=== PATIENT | female | born 1995 | race Caucasian/White ===

== ENCOUNTER 2017-06-12 21:37 | Emergency (ER) | payer OTHER ==
[2017-06-12 21:43] VITALS: BP 100/41; PULSE 62; TEMP 98.6; BMI 25.0
--- NOTE | 2017-06-12 22:48 | PDOC ---
History of Present Illness - General Chief Complaint: Sore Throat Stated Complaint: SORE THROAT Time Seen by Provider: 06/12/17 21:44 - History of Present Illness Initial Comments: This 22-year-old woman without significant past medical history presents with 5 day history of sore throat. She was seen in urgent care 4 days ago and started on antibiotics. Patient does not recall that she was tested for strep; she did remember receiving an intramuscular medication although she was not sure with this medication was. She was given prescription for Augmentin 875/125 twice a day for 10 days. She was told when she was discharged from urgent care to go to an emergency room if she had no relief in her symptoms. She presents now because she continues to have pain when she swallows. Patient does not describe worsening of the pain, drooling, trismus, high fever or difficulty breathing. She has no known contacts with other people left head strep throat and does not know if she has had mono nucleosis this in the past Past History - Past Medical History Allergies/Adverse Reactions: Allergies Allergy/AdvReac Type Severity Reaction Status Date / Time No Known Allergies Allergy Verified 06/12/17 21:38 Home Medications: Ambulatory Orders NK [No Known Home Medication] 06/12/17 COPD: No - Immunization History Immunization Up to Date: Yes - Suicide/Smoking/Psychosocial Hx Smoking History: Never smoked Hx Alcohol Use: Yes (OCCASIONAL) Drug/Substance Use Hx: No Substance Use Type: None *Physical Exam - Vital Signs Last Vital Signs Temp Pulse Resp BP Pulse Ox 98.6 F 62 15 100/41 99 06/12/17 21:38 06/12/17 21:38 06/12/17 21:38 06/12/17 21:38 06/12/17 21:38 - Physical Exam Comments: GENERAL: Young adult female, alert and oriented 3, speaking in full sentences, and no acute distress HEAD: Normal with no signs of trauma. EYES: PERRLA, EOMI, sclera anicteric, conjunctiva clear. ENT: Ears normal, nares patent, tonsils 1+ edema bilaterally with scattered exudative patches. Oropharynx erythematous without edema. Moist mucous membranes. Uvula midline; no evidence of abscess or masses NECK: Normal range of motion, supple ; bilateral mildly tender 1+ anterior cervical lymphadenopathy.no JVD, or masses. LUNGS: Breath sounds equal, clear to auscultation bilaterally. No wheezes, and no crackles. HEART:Regular rate and rhythm, normal S1 and S2 without murmur, rub or gallop. ABDOMEN:.normal bowel sounds No guarding,tenderness or rebound.No masses No distention. EXTREMITIES: Normal range of motion, no edema. No clubbing or cyanosis. No erythema, or tenderness. NEUROLOGICAL: Cranial nerves II through XII grossly intact. Normal speech. No focal neurological deficits. MUSCULOSKELETAL: Back non-tender to palpation, no CVA tenderness SKIN: Warm, Dry, normal turgor, no rashes or lesions noted. Medical Decision Making - Medical Decision Making This 22-year-old woman on fourth day of Augmentin 10 day course for presumed strep pharyngitis, presents because she has persistent pain. She has had no development of drooling/trismus/difficulty breathing or stridor. She had been told by urgent care providers to go to ER if she had persistence of pain. Although it is unclear whether strep pharyngitis was definitively proven in this patient, clinical presentation is consistent with that. The signs and symptoms of mono pharyngitis were discussed with the patient. She has no known history of mononucleosis or known contacts with active cases. She declined Monospot testing at this time. Patient was reassured that she has no evidence of complicated pharyngitis manifested as peritonsillar abscess or other complications. She is well- hydrated and has no evidence of airway compromise. She should continue her Augmentin as prescribed; ibuprofen/naproxen/ acetaminophen should be continued as needed for pain and fever. *DC/Admit/Observation/Transfer Diagnosis at time of Disposition: Acute pharyngitis Qualifiers: Pharyngitis/tonsillitis etiology: unspecified etiology Qualified Code(s): J02.9 - Acute pharyngitis, unspecified - Discharge Dispostion Disposition: HOME Condition at time of disposition: Stable - Referrals - Patient Instructions Printed Discharge Instructions: DI for Pharyngitis/Tonsillopharyngitis -- Adult Additional Instructions: Continue antibiotics as prescribed Motrin/Aleve/Tylenol as needed for pain Drink plenty of fluids Return here or see your ear, nose and throat doctor if you have worsening pain - Post Discharge Activity
== END 2017-06-12 23:11 | disposition home or self-care (01) ==
LOC: FER 21:37
DX: J02.9 Acute pharyngitis, unspecified (principal)
CPT/HCPCS: 99281-25